=== PATIENT | male | born 1985 ===

== ENCOUNTER 2022-07-28 11:34 | Inpatient (IN) | payer MEDICAID ==
[2022-07-28] MEDS ORDERED: MAG HYDROX/AL HYDROX/SIMETH 30 ML CUP PO PRN (12:07)
[2022-07-28] MEDS ORDERED: MAGNESIUM HYDROXIDE 2,400 MG/10 ML CUP PO PRN (12:07)
[2022-07-28] MEDS ORDERED: OLANZapine 10 MG VIAL IM PRN (12:14)
[2022-07-28] MEDS ORDERED: OLANZapine 5 MG TAB PO PRN (12:14)
[2022-07-28] MEDS ORDERED: hydrOXYzine HCL 50 MG/ML 1 ML VIAL IM PRN (12:14)
[2022-07-28] MEDS ORDERED: ALBUTEROL NEBULIZED 2.5 MG/3 ML INHALATION PRN (12:24)
[2022-07-28] MEDS ORDERED: SYMBICORT 80-4.5 MCG INHALER INHALATION SCH (20:00)
[2022-07-28] MEDS: MONTELUKAST 10 MG TAB PO SCH (20:59)
[2022-07-28] MEDS: APIXABAN 5 MG TAB PO SCH (20:59)
[2022-07-28] MEDS: QUEtiapine 100 MG TAB PO SCH (20:59)
[2022-07-28] MEDS ORDERED: MIRTAZAPINE 15 MG TAB PO SCH (21:00)
[2022-07-28] MEDS: SYMBICORT 80-4.5 MCG INHALER (MHU) INHALATION SCH (21:00)
[2022-07-28] MEDS: ACETAMINOPHEN TAB 325 MG TAB PO PRN (21:05)
[2022-07-28] MEDS: hydrOXYzine pamoate 25 MG CAP PO PRN (21:33)
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
[2022-07-29 07:42] LABS: Basophils # (A) 0.1 k/uL (0-0.2); Basophils % (A) 1 %; Eosinophils # (A) 0.8 k/uL (0-0.7); Eosinophils % (A) 10 %; HCT 47.8 % (39.0-53.0); HGB 14.8 gm/dL (13.0-17.5); Hypochromasia Marked; Lymphocytes # (A) 1.7 k/uL (1.0-4.8); Lymphocytes % (A) 21 %; MCH 23.5 pg (25.0-35.0); MCHC 30.9 g/dL (31.0-37.0); MCV 75.9 fL (80.0-100.0); Mean Platelet Volume 10.1; Microcytosis Slight; Monocytes # (A) 0.6 k/uL (0-1.0); Monocytes % (A) 8 %; Neutrophils # (A) 4.6 k/uL (1.3-7.7); Neutrophils % (A) 58 %; Platelet Count 119 k/uL (150-450); RDW 14.5 % (11.5-15.5)
[2022-07-29 07:47] LABS: ALT 72 U/L (4-49); AST 53 U/L (17-59); African American GFR (CKD) 74 (>60 ml/min/1.73 sqM); Albumin 3.8 g/dL (3.5-5.0); Alkaline Phosphatase 69 U/L (38-126); Anion Gap 8 mmol/L; Bilirubin, Delta 0.2 mg/dL (0.0-0.2); Bilirubin,Unconjugated 0.4 mg/dL (0.0-1.1); Blood Urea Nitrogen 22 mg/dL (9-20); Calcium 9.1 mg/dL (8.4-10.2); Carbon Dioxide 33 mmol/L (22-30); Chloride 96 mmol/L (98-107); Glucose 83 mg/dL (74-99); Non-African American GFR(CKD) 64 (>60 ml/min/1.73 sqM); Potassium 4.8 mmol/L (3.5-5.1); Sodium 137 mmol/L (137-145); Total Bilirubin 0.6 mg/dL (0.2-1.3); Total Protein 6.5 g/dL (6.3-8.2)
[2022-07-29] MEDS: ATORVASTATIN 20 MG TAB PO SCH (08:58)
[2022-07-29] MEDS: APIXABAN 5 MG TAB PO SCH ×2 (08:58→20:05)
[2022-07-29] MEDS: PANTOPRAZOLE 40 MG TABLET PO SCH (08:58)
[2022-07-29] MEDS: amLODIPine 10 MG TAB PO SCH (08:58)
[2022-07-29] MEDS: LORATADINE 10 MG TAB PO SCH (08:58)
[2022-07-29] MEDS: QUEtiapine 100 MG TAB PO SCH (08:58)
[2022-07-29] MEDS: NICOTINE 21MG/24HR PATCH TRANSDERM SCH (08:58)
[2022-07-29] MEDS: SYMBICORT 80-4.5 MCG INHALER (MHU) INHALATION SCH ×2 (09:27→20:07)
[2022-07-29 10:57] LABS: Chol/HDL Ratio 3.64 Ratio
[2022-07-29] MEDS: FLUTICASONE 50MCG/SPRAY NASAL 16GM EA NOSTRIL PRN (12:18)
[2022-07-29] MEDS: ACETAMINOPHEN TAB 325 MG TAB PO PRN (12:21)
[2022-07-29] MEDS: hydrOXYzine pamoate 25 MG CAP PO PRN (12:21)
[2022-07-29] MEDS: NICOTINE GUM (POLACRILEX) 2 MG GUM BUCCAL PRN ×2 (14:41→20:06)
[2022-07-29] MEDS: MONTELUKAST 10 MG TAB PO SCH (20:05)
[2022-07-29] MEDS ORDERED: QUEtiapine 200 MG TAB PO SCH (21:00)
--- NOTE | 2022-07-29 21:56 | HP ---
DATE OF SERVICE: 07/29/2022 HISTORY AND PHYSICAL IDENTIFYING DATA: The patient is a 37-year-old male. He lives independently and has been staying in a motel with his godfather. He was admitted in referral from [facility]. CHIEF COMPLAINT: It was documented the patient was feeling "unsafe" and had relapsed to substance use. HISTORY OF PRESENTING ILLNESS: The patient has a history of some mental health issues and apparently has had a past diagnosis of bipolar disorder. He states that he has been on Seroquel 100 mg twice a day and Remeron 15 mg a day as his 2 psychotropic medications. He apparently had been off these medicines for a period of time. He lost a living situation and ended up moving into a motel temporarily. He has been living with his godfather according to a petition that was completed at [facility] by Dr. Antoine. "The patient reported suicidal ideation and auditory hallucinations. The patient admitted to being in a recovery program. He had used cocaine and drinks 2 to 5 beers and a 5th of liquor per day. Voluntarily seeking help." According to the patient, he drank recently, though did not report the amount that was noted. He acknowledged that he has been missing his medications. He apparently was in a recovery program, though has left the program. He indicates that the medicines that he is on have been prescribed for some mood swings and sleep problems. He was not reporting a clear history of having hallucinations or delusional thinking. He said that when he went to [facility], his main concern was some leg problems he was having and that he denied having any thoughts of suicide. He also did not believe that he was having hallucinations and also says that he did not report that to the physician. The medical record includes a clinical certification completed by Dr. Cortez, dated 07/20/2022. In the certification, the following was noted, "the patient states he is "seeing things" and "hearing voices." He wants hospitalization and feels unsafe. The patient has a history of substance abuse." The patient says that he first went to [facility] on the 5th primarily because of some leg pain problems he was having. I talked with the patient's godfather with whom he has been living. He indicated that the patient has not been making any statements or indications of thoughts of harming himself or others. He has not noted the patient to be having any abnormal thoughts or showing any signs that he may be having hallucinations or delusional thinking. He notes that the patient has not been sleeping well. He is not aware that the patient has had any significant substance use issues in the last several days, though says he may have consumed a limited amount of alcohol, though he has not seen the patient showed any signs of intoxication. He noted that he has been helping the patient get set up for some further outpatient followup and that they had contact with [facility], though [facility] has not been getting back with the patient to set up followup care. He said there are some concerns about his medications including that he had been on Depakote and more recently on Seroquel and that there are concerns for his possibly being prediabetic. Neither the patient nor the godfather gave clear indication of manic symptoms, panic, posttraumatic issues, or thought disorder symptoms. The patient is admitted for further evaluation. SUBSTANCE USE HISTORY: As above. PAST MEDICAL HISTORY: The patient has asthma. There is some indication that he may be prediabetic according to godfather. FAMILY AND SOCIAL HISTORY: No information available. MENTAL STATUS EXAM: The patient sat without restlessness. He gave fairly good eye contact. Psychomotor activity was somewhat slowed. Speech was monotone. He answered questions with brief responses. His thoughts were clear and coherent. He was not spontaneous, though was somewhat interactive. His affect was blunted. His mood was reserved. He did not appear to be significantly depressed or distressed. There was no indication of thought disorder. He denied thoughts of harm. On cognitive exam, he was oriented x3 and alert. He could recall 2/3 objects in 4 minutes. He could do a serial-3 subtraction. He could give the days of the week in reverse order without difficulty. Fund of knowledge was average. PHYSICAL EXAMINATION: As per medical consultation. ASSESSMENT: This 37-year-old male is diagnosed with bipolar disorder by history. He also appears to have some substance abuse issues, though we do not have details. The patient is willing to get back on his outpatient medications and has been seeking followup care. The only immediate precipitating factor may be housing issues. DIAGNOSES: 1. Bipolar affective disorder. 2. Asthma. 3. Rule out prediabetes. RECOMMENDATIONS: The patient will be admitted for comprehensive medical, psychiatric, and psychosocial evaluation. We will engage the patient in individual and group therapeutic activities. The patient is willing to sign involuntarily. I will continue the patient on Seroquel. I will increase his dose to 100 mg in the morning and 200 mg at bedtime. I will not continue Remeron, which does have the risks for potentially aggravating bipolar issues and may initiate cycling. I discussed with the patient concerns relating to a tanacross as far as potential for metabolics, though I suggested that given that is the medicine he used to, he can continue that in the short run. I reviewed alternative medication options that might be looked into. Once he is in followup care, he will need to set up followup care both to address psychiatric as well as substance use issues. In regard to Seroquel, I also reviewed indication, potential side effects, and concerns relating to movement disorder issues. We will focus on stabilization and discharge planning. TYREE / DANILO: [id number] / MTDHernan
[2022-07-30] MEDS: NICOTINE 21MG/24HR PATCH TRANSDERM SCH (07:55)
[2022-07-30] MEDS: PANTOPRAZOLE 40 MG TABLET PO SCH (07:56)
[2022-07-30] MEDS: FLUTICASONE 50MCG/SPRAY NASAL 16GM EA NOSTRIL PRN (07:56)
[2022-07-30] MEDS: hydrOXYzine pamoate 25 MG CAP PO PRN (07:57)
[2022-07-30] MEDS: QUEtiapine 100 MG TAB PO SCH ×2 (07:58→20:46)
[2022-07-30] MEDS: LORATADINE 10 MG TAB PO SCH (07:58)
[2022-07-30] MEDS: APIXABAN 5 MG TAB PO SCH ×2 (07:58→20:46)
[2022-07-30] MEDS: ATORVASTATIN 20 MG TAB PO SCH (07:58)
[2022-07-30] MEDS: amLODIPine 10 MG TAB PO SCH (07:58)
[2022-07-30] MEDS: SYMBICORT 80-4.5 MCG INHALER (MHU) INHALATION SCH ×2 (08:47→20:44)
[2022-07-30] MEDS ORDERED: ALBUTEROL INHALER 60 PUFF/8 GM INHALER (MHU) INHALATION PRN (11:50)
--- NOTE | 2022-07-30 13:27 | P.PN ---
Progress Note - Text Progress Note Date: 07/30/22 Interval history: Patient was seen bedside and was directable and agreeable to speak with software writer. Patient continues to endorse trouble with sleeping. He does feel that the Seroquel has been helpful. He denies other concerns including trouble with focus or appetite issues. At this time patient denies any suicidal or homicidal ideations intent or plan. Denies any Auditory or visual hallucinations. Patient denies any side effects from the medications and has been compliant with meds. Mental status exam: General Appearance: Patient appears to be stated age is alert, directable, and cooperative. Behavior: No agitated behavior. Patient is calm and directable Speech: Patient's speech is fluent and nonpressured. Mood/Affect: Mood is improving mildly, affect is congruent and constricted. Suicidality/Homicidality: Patient denies having any suicidal or homicidal id eation intent or plan. Perceptions: Patient denies any auditory or visual hallucinations. Though content/process: There is no evidence of any delusional thought content and thought process is linear and goal-directed. Memory and concentration: AOX3, grossly intact for the purposes of this session Judgment and insight: improving mildly Assessment/Plan: Continue with current diagnosis. Patient continues to meet criteria for inpatient psychiatric admission for symptom stabilization and safety. Increase Seroquel to 100 mg qAM and 300 mg qHS. Monitor for medication compliance and for any psychotropic medication side effects. Will continue to monitor ongoing response to treatment. Encouraged participation in milieu.
[2022-07-30] MEDS: ACETAMINOPHEN TAB 325 MG TAB PO PRN ×2 (13:39→20:47)
[2022-07-30] MEDS: NICOTINE GUM (POLACRILEX) 2 MG GUM BUCCAL PRN ×2 (13:39→18:51)
[2022-07-30] MEDS: MONTELUKAST 10 MG TAB PO SCH (20:46)
--- NOTE | 2022-07-31 00:43 | XR ---
EXAMINATION TYPE: XR chest 2V DATE OF EXAM: 07/30/2022 COMPARISON: NONE HISTORY: Cough TECHNIQUE: 2 views FINDINGS: Heart size is normal. There is some pulmonary hyperinflation. There are some coarse reticul ar density in the mid and upper lung rivera. No evidence of mediastinal mass. No pleural effusion. Rub[place] ny thorax is intact. IMPRESSION: There is evidence of emphysema and pulmonary fibrosis. No heart failure.
[2022-07-31] MEDS: PANTOPRAZOLE 40 MG TABLET PO SCH (08:45)
[2022-07-31] MEDS: NICOTINE 21MG/24HR PATCH TRANSDERM SCH (08:45)
[2022-07-31] MEDS: amLODIPine 10 MG TAB PO SCH (08:46)
[2022-07-31] MEDS: APIXABAN 5 MG TAB PO SCH ×2 (08:46→19:36)
[2022-07-31] MEDS: LORATADINE 10 MG TAB PO SCH (08:46)
[2022-07-31] MEDS: ATORVASTATIN 20 MG TAB PO SCH (08:46)
[2022-07-31] MEDS: SYMBICORT 80-4.5 MCG INHALER (MHU) INHALATION SCH ×2 (08:46→19:34)
[2022-07-31] MEDS: QUEtiapine 100 MG TAB PO SCH ×2 (08:46→19:36)
[2022-07-31] MEDS: NICOTINE GUM (POLACRILEX) 2 MG GUM BUCCAL PRN ×4 (09:02→21:19)
[2022-07-31] MEDS: hydrOXYzine pamoate 25 MG CAP PO PRN (09:58)
--- NOTE | 2022-07-31 12:47 | P.PN ---
Progress Note - Text Progress Note Date: 07/31/22 Interval history: Patient was seen to interview room. He states that his sleep has improved with the increased dose of Seroquel. He reports low mood at times outside the hospital we discussed Remeron. He states that he had been on Remeron outpatient and would like to be restarted back on it here. Patient denies symptoms consistent with geoff outside of the context of substance use. He denies other concerns including trouble with focus or appetite issues. At this time patient denies any suicidal or homicidal ideations intent or plan. Denies any Auditory or visual hallucinations. Patient denies any side effects from the medications and has been compliant with meds. Mental status exam: General Appearance: Patient appears to be stated age is alert, directable, and cooperative. Behavior: No agitated behavior. Patient is calm and directable Speech: Patient's speech is fluent and nonpressured. Mood/Affect: Mood is improving mildly, affect is congruent and constricted. Suicidality/Homicidality: Patient denies having any suicidal or homicidal ideation intent or plan. Perceptions: Patient denies any auditory or visual hallucinations. Though content/process: There is no evidence of any delusional thought content and thought process is linear and goal-directed. 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 AFV Continue Seroquel 100 mg qAM and 300 mg qHS. Add Remeron 15 mg qHS for mood and sleep. Motivational interviewing for substance use. Monitor for medication compliance and for any psychotropic medication side effects. Will continue to monitor ongoing response to treatment. Encouraged participation in milieu.
[2022-07-31] MEDS: NALTREXONE HCL 50 MG TAB PO SCH (13:28)
[2022-07-31] MEDS: predniSONE 20 MG TAB PO SCH (14:03)
[2022-07-31] MEDS: ACETAMINOPHEN TAB 325 MG TAB PO PRN (17:38)
[2022-07-31] MEDS: MONTELUKAST 10 MG TAB PO SCH (19:36)
[2022-07-31] MEDS ORDERED: MIRTAZAPINE 15 MG TAB PO SCH (21:00)
[2022-08-01] MEDS: NICOTINE GUM (POLACRILEX) 2 MG GUM BUCCAL PRN ×2 (06:33→11:04)
[2022-08-01] MEDS: FLUTICASONE 50MCG/SPRAY NASAL 16GM EA NOSTRIL PRN (06:33)
[2022-08-01 06:50] VITALS: BP 165/80; PULSE 99; RESP 16; TEMP 97.2
[2022-08-01] MEDS: NALTREXONE HCL 50 MG TAB PO SCH (08:43)
[2022-08-01] MEDS: ATORVASTATIN 20 MG TAB PO SCH (08:43)
[2022-08-01] MEDS: QUEtiapine 100 MG TAB PO SCH (08:43)
[2022-08-01] MEDS: LORATADINE 10 MG TAB PO SCH (08:43)
[2022-08-01] MEDS: PANTOPRAZOLE 40 MG TABLET PO SCH (08:43)
[2022-08-01] MEDS: NICOTINE 21MG/24HR PATCH TRANSDERM SCH (08:44)
[2022-08-01] MEDS: amLODIPine 10 MG TAB PO SCH (08:44)
[2022-08-01] MEDS: APIXABAN 5 MG TAB PO SCH (08:44)
[2022-08-01] MEDS: SYMBICORT 80-4.5 MCG INHALER (MHU) INHALATION SCH (08:44)
[2022-08-01] MEDS: predniSONE 20 MG TAB PO SCH (08:44)
--- NOTE | 2022-08-01 11:56 | P.DS ---
Providers Date of admission: 07/28/22 16:47 Expected date of discharge: 08/01/22 Attending physician: Gilbert Jimenes MD Consults: 07/28/22 12:07 Consult Physician Routine Consulting Provider: Jose A Vázquez Consult Reason/Comments: Medical H&P Do you want consulting provider notified?: Yes Primary care physician: Porsche Washington - Discharge Diagnosis(es) (1) Major depressive disorder Current Visit: Yes Status: Acute Priority: High (2) Cocaine-induced psychotic disorder Current Visit: Yes Status: Acute Priority: High (3) Cocaine use disorder Current Visit: Yes Status: Chronic Priority: Medium (4) Alcohol use disorder Current Visit: Yes Status: Chronic Priority: Medium Hospital Course: Admission HPI: Initial psychiatric evaluation was completed by Dr. Cha on 07/29/2022 who wrote: "The patient is a 37-year-old male. He lives independently has been staying in a motel with his godfather. He was admitted in referral from [facility]. CHIEF COMPLAINT: It was documented the patient was feeling "unsafe" and had relapse to substance use. HISTORY OF PRESENT ILLNESS: The patient has a history of mental health and was apparently previously diagnosed bipolar disorder. He has been on a regimen of Seroquel 100 mg twice a day and Remeron 15 mg at bedtime. Reportedly, the patient was off his medications for a period of time after losing his current living situation ending up in a motel temporarily. The patient reportedly stated that he was suicidal and expressing auditory hallucinations as per the petition filled out by Dr Antoine in [facility]. Patient also reportedly has been drinking 2-5 beers a day along with a fifth of liquor. According to the patient, he drank recently, though did not report the amount that was noted. He acknowledges that he has been missing his medications. He was previously enrolled in a recovery program though he left the program. Indicates that the medicines that he is on have been prescribed for mood swings. The patient vehemently denies this but was stated in his petition stating that he was not suicidal or expressing any hallucinations. As per certification, the patient was reported the "seeing things and hearing voices." The patient maintains that he went to [facility] for leg pain. The patient's godfather with whom the patient has been living spoke with the admitting provider. It is reported that the godfather stated that the patient had not been making any statements or indications of thoughts of harming himself or others. He also noted that the patient has not indicated any abnormal thoughts or showing signs of any hallucinations delusional thinking. He did note that the patient had not been sleeping well. The patient is to follow-up with the [facility]. He is admitted for further psychiatric evaluation. Hospital course: Upon admission to the unit patient was initially noted to be somewhat slow however was reserved and cooperative. Patient was however directable and agreeable to commence treatment. Patient got along well with other patients on the unit and followed unit protocol. Patient was compliant with the medications and denied any side effects throughout hospital course. Patient was started on Seroquel 100 mg in the morning and 200 mg at bedtime. Remeron 15 mg at bedtime was also added to his regimen. Patient spoke of his stressors and engaged in therapy both group and individual. Patient was also seen by medical team for history and physical exam. Of course the hospitalization, the patient displayed significant improvement regards his target symptoms of depression and substance use. He was agreeable to starting naltrexone for management of alcohol use disorder. He tolerated his medications well and participated well in individual and milieu activities. On the day of discharge, the patient is not reporting any suicidal or homicidal ideation, intention, and/or plan. He is not reporting any auditory or visual hallucinations. He is denying any paranoia or other delusions. The patient has been in adherent with his medication is not reporting any significant side effects. He denies any access to firearms or ot her weapons. The patient was consequently reports of medication adherence and appropriate outpatient follow-up. Furthermore, the patient does have a significant history of alcohol use disorder and was counseled great length on abstaining from all substances including alcohol and marijuana. Prior to discharge, a family meeting was arranged by social services manager paperhanger assistant questions and ensure safety. As the patient no longer met criteria for continued inpatient psychiatric hospitalization, he was subsequently discharged. Mental status exam: General Appearance: Patient appears to be stated age is alert, pleasant, and cooperative. Patient is in no acute distress and has fair hygiene and grooming. Tall with notable facial tattoos. Behavior: Patient is calmly seated without any agitated behavior. Speech: Patient's speech is fluent and nonpressured. Mood/Affect: Patient reports their mood is "feeling good and ready to go", affect is congruent and euthymic to bright. Suicidality/Homicidality: Patient denies having any suicidal or homicidal ideation intent or plan. Perceptions: Patient denies any auditory or visual hallucinations. Though content/process: There is no evidence of any delusional thought content and thought process is linear and goal-directed. Patient is future and goal oriented Memory and concentration: AOX3, grossly intact for the purposes of this session. Can spell "WORLD" backwards correctly. 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 Patient will remain at chronically elevated risk for harm to self and/or others due to his impulsivity and polysubstance abuse. -Continue medications: Seroquel 100 mg by mouth every morning 30 mg by mouth daily at bedtime for mood stabilization/psychosis Remeron 15 mg daily at bedtime for depression/insomnia Naltrexone 50 mg by mouth daily for alcohol cessation - Recommend CMP follow-up in 1 week. -Patient was counseled on the need for medication compliance and appropriate follow-up at mental health and also primary care for medical issues. Patient verbalized understanding and agreed. -Social work to arrange for and conduct family meeting to ensure safety upon discharge and answer any questions/concerns. Social work also to arrange for patients follow up appointments for psychiatric care along with follow up with primary care provider. -Patient counseled on abstaining from recreational drugs and marijuana and alcohol. Was informed/educated on the adverse effects on their physical and mental health. Patient verbally agreed and understood. Patient was offered substance abuse treatment however declined at this time. -Patient was instructed to return to the hospital or seek immediate medical care if their psychiatric or medical symptoms do worsen or reoccur. -Psychoeducation and supportive therapy provided to patient. Risks and benefits of pharmacological treatment versus the risks and benefits of nontreatment weight and discussed. Informed consent discussion held. Common side effects of psychotropics discussed such as, but not limited to headache, GI disturbance, sexual dysfunction, movement disorders, sedation, and orthostatic hypotension. Life threatening and blackbox warnings of prescribed medications also discussed. Potential risks of operating a vehicle or heavy machinery discussed with patient at length. Advised on importance of compliance and a reliable and responsible manner. Patient advised to review FDA consumer labeling of all medications prior to taking. Patient verbalized understanding of potential risks, and agrees with current treatment plan. Patient advised to medically contact physician/emergency personnel if any acute changes in condition occur. Vital Signs Temp 97.2 F L 08/01/22 06:49 Pulse 99 08/01/22 06:49 Resp 16 08/01/22 06:49 BP 165/80 08/01/22 06:49 Pulse Ox 95 08/01/22 06:49 FiO2 Intake & Output 07/31/22 08/01/22 08/01/22 18:59 06:59 18:59 Weight 104 kg Laboratory Results WBC 8.0 k/uL (3.8-10.6) 07/29/22 06:13 RBC 6.30 m/uL (4.30-5.90) H 07/29/22 06:13 Hgb 14.8 gm/dL (13.0-17.5) 07/29/22 06:13 Hct 47.8 % (39.0-53.0) 07/29/22 06:13 MCV 75.9 fL (80.0-100.0) L 07/29/22 06:13 MCH 23.5 pg (25.0-35.0) L 07/29/22 06:13 MCHC 30.9 g/dL (31.0-37.0) L 07/29/22 06:13 RDW 14.5 % (11.5-15.5) 07/29/22 06:13 Plt Count 119 k/uL (150-450) L 07/29/22 06:13 MPV 10.1 07/29/22 06:13 Neutrophils % 58 % 07/29/22 06:13 Lymphocytes % 21 % 07/29/22 06:13 Monocytes % 8 % 07/29/22 06:13 Eosinophils % 10 % 07/29/22 06:13 Basophils % 1 % 07/29/22 06:13 Neutrophils # 4.6 k/uL (1.3-7.7) 07/29/22 06:13 Lymphocytes # 1.7 k/uL (1.0-4.8) 07/29/22 06:13 Monocytes # 0.6 k/uL (0-1.0) 07/29/22 06:13 Eosinophils # 0.8 k/uL (0-0.7) H 07/29/22 06:13 Basophils # 0.1 k/uL (0-0.2) 07/29/22 06:13 Hypochromasia Marked 07/29/22 06:13 Microcytosis Slight 07/29/22 06:13 Sodium 137 mmol/L (137-145) 07/29/22 06:13 Potassium 4.8 mmol/L (3.5-5.1) 07/29/22 06:13 Chloride 96 mmol/L (98-107) L 07/29/22 06:13 Carbon Dioxide 33 mmol/L (22-30) H 07/29/22 06:13 Anion Gap 8 mmol/L 07/29/22 06:13 BUN 22 mg/dL (9-20) H 07/29/22 06:13 Creatinine 1.41 mg/dL (0.66-1.25) H 07/29/22 06:13 Est GFR (CKD-EPI)AfAm 74 (>60 ml/min/1.73 sqM) 07/29/22 06:13 Est GFR (CKD-EPI)NonAf 64 (>60 ml/min/1.73 sqM) 07/29/22 06:13 Glucose 83 mg/dL (74-99) 07/29/22 06:[address] Glu mg/dL 125 07/29/22 06:13 Hemoglobin A1c 6.0 % (0.0-6.0) 07/29/22 06:13 Calcium 9.1 mg/dL (8.4-10.2) 07/29/22 06:13 Total Bilirubin 0.6 mg/dL (0.2-1.3) 07/29/22 06:13 Conjugated Bilirubin 0.0 mg/dL (0.0-0.3) 07/29/22 06:13 Unconjugated Bilirubin 0.4 mg/dL (0.0-1.1) 07/29/22 06:13 Delta Bilirubin 0.2 mg/dL (0.0-0.2) 07/29/22 06:13 AST 53 U/L (17-59) 07/29/22 06:13 ALT 72 U/L (4-49) H 07/29/22 06:13 Alkaline Phosphatase 69 U/L (38-126) 07/29/22 06:13 Total Protein 6.5 g/dL (6.3-8.2) 07/29/22 06:13 Albumin 3.8 g/dL (3.5-5.0) 07/29/22 06:13 Triglycerides 141.00 mg/dL (0.00-149.00) 07/29/22 06:13 Cholesterol 214.00 mg/dL (0.00-200.00) H 07/29/22 06:13 LDL Cholesterol, Calc 127.0 mg/dL (0.0-131.0) 07/29/22 06:13 VLDL Cholesterol, Calc 28.20 mg/dL (5.00-40.00) 07/29/22 06:13 HDL Cholesterol 58.80 mg/dL (40.00-60.00) 07/29/22 06:13 Cholesterol/HDL Ratio 3.64 Ratio 07/29/22 06:13 TSH 2.680 mIU/L (0.465-4.680) 07/29/22 06:13 Coronavirus (PCR) Not Detected (Not Detectd) 07/30/22 14:54 Influenza Type A RNA Not Detected (Not Detectd) 07/30/22 18:55 Influenza Type B (PCR) Not Detected (Not Detectd) 07/30/22 18:55 Allergies Allergy/AdvReac Type Severity Reaction Status Date / Time aspirin Allergy Unknown Verified 07/28/22 14:27 NSAIDS (Non-Steroidal Allergy Unknown Verified 07/28/22 14:27 Anti-Inflamma Patient Condition at Discharge: Stable Plan - Discharge Summary Discharge Rx Participant: No New Discharge Prescriptions: New Loratadine [Claritin] 10 mg PO DAILY 30 Days tab predniSONE [Deltasone] 40 mg PO DAILY tab Apixaban [Eliquis] 5 mg PO BID tab Atorvastatin [Lipitor] 20 mg PO DAILY tab amLODIPine [Norvasc] 10 mg PO DAILY tab Montelukast [Singulair] 10 mg PO HS tab hydrOXYzine pamoate [Vistaril] 50 mg PO TID 15 Days cap Fluticasone Nasal [place] [Flonase Nasal [place]] 2 spray EA NOSTRIL DAILY PRN ml PRN Reason: Allergy Symptoms Nicotine 21Mg/24Hr Patch [Habitrol] 1 patch TRANSDERM DAILY 7 Days patch Pantoprazole [Protonix] 40 mg PO AC-BRKFST tab Mirtazapine [Remeron] 15 mg PO HS 30 Days tab Naltrexone HCl [Revia] 50 mg PO DAILY 30 Days tab QUEtiapine [SEROquel] 300 mg PO HS 30 Days tab QUEtiapine [SEROquel] 100 mg PO DAILY 30 Days tab Acetaminophen Tab [Tylenol] 650 mg PO Q4HR PRN tab PRN Reason: Pain/Discomfort Discharge Medication List Acetaminophen Tab [Tylenol] 650 mg PO Q4HR PRN tab 08/01/22 [Rx] Apixaban [Eliquis] 5 mg PO BID tab 08/01/22 [Rx] Atorvastatin [Lipitor] 20 mg PO DAILY tab 08/01/22 [Rx] Fluticasone Nasal [place] [Flonase Nasal [place]] 2 spray EA NOSTRIL DAILY PRN ml 08/01/22 [Rx] Loratadine [Claritin] 10 mg PO DAILY 30 Days tab 08/01/22 [Rx] Mirtazapine [Remeron] 15 mg PO HS 30 Days tab 08/01/22 [Rx] Montelukast [Singulair] 10 mg PO HS tab 08/01/22 [Rx] Naltrexone HCl [Revia] 50 mg PO DAILY 30 Days tab 08/01/22 [Rx] Nicotine 21Mg/24Hr Patch [Habitrol] 1 patch TRANSDERM DAILY 7 Days patch 08/01/22 [Rx] Pantoprazole [Protonix] 40 mg PO AC-BRKFST tab 08/01/22 [Rx] QUEtiapine [SEROquel] 100 mg PO DAILY 30 Days tab 08/01/22 [Rx] QUEtiapine [SEROquel] 300 mg PO HS 30 Days tab 08/01/22 [Rx] amLODIPine [Norvasc] 10 mg PO DAILY tab 08/01/22 [Rx] hydrOXYzine pamoate [Vistaril] 50 mg PO TID 15 Days cap 08/01/22 [Rx] predniSONE [Deltasone] 40 mg PO DAILY tab 08/01/22 [Rx] Activity/Diet/Wound Care/Special Instructions: Avoid the use of street drugs and alcohol. Take all prescriptions as prescri bed. When you are in need of refills on your medications, please contact your medical provider and/or outpatient psychiatrist to have this done. Please go to scheduled outpatient appointment for aftercare treatment. If symptoms return or become worse, call the crisis line at and/or go to the nearest emergency room for evaluation. Discharge Disposition: HOME SELF-CARE
== END 2022-08-01 14:40 | disposition home or self-care (01) | DRG 881 ==
LOC: 3MHU 16:47
PROVIDERS: ADMIT Psychiatry & Neurology Psychiatry; ATTEND Psychiatry & Neurology Psychiatry
DX: F32.9 Major depressive disorder, single episode, unspecified (principal); R45.851 Suicidal ideations; F14.159 Cocaine abuse with cocaine-induced psychotic disorder, unspecified; F10.10 Alcohol abuse, uncomplicated; F17.200 Nicotine dependence, unspecified, uncomplicated; G47.00 Insomnia, unspecified; E11.9 Type 2 diabetes mellitus without complications; I10 Essential (primary) hypertension; J44.9 Chronic obstructive pulmonary disease, unspecified; Z79.899 Other long term (current) drug therapy; Z86.718 Personal history of other venous thrombosis and embolism; Z20.822 Contact with and (suspected) exposure to COVID-19
CPT/HCPCS: 71046; 80053; 80061; 82248; 83036; 84443; 85025; 87502; 87635; 87798